=== PATIENT | female | born 1940 | race Two or more races ===

== ENCOUNTER 2020-04-16 16:28 | Inpatient (IN) | payer MEDICARE ==
[~2020-04-16] VITALS: Ht 162.6 cm; Wt 71.8 kg
--- NOTE | 2020-04-16 17:52 | NUR ---
UNABLE TO OBTAIN ECG IN TRIAGE. TO ROOM SHORTLY TO BED FOR ECG
[2020-04-16 18:17] LABS: BASOPHILS % (AUTO) 1 % (0-1); EOSINOPHILS % (AUTO) 0 % (1-7); LYMPHOCYTES % (AUTO) 17 % (22-44); MEAN CORPUSCULAR HEMOGLOBIN 25.1 pg (27.0-34.8); MEAN CORPUSCULAR HGB CONC 30.8 g/dL (32.4-35.8); MEAN PLATELET VOLUME 8.8 fL (7.4-10.4); MONOCYTES % (AUTO) 9 % (2-9); NEUTROPHILS % (AUTO) 73 % (42-75); PLATELET COUNT 406 x10^3/uL (130-400); RED BLOOD COUNT 4.57 x10^6/uL (3.82-5.3); RED CELL DISTRIBUTION WIDTH 15.5 % (9.6-15.2)
[2020-04-16 18:19] LABS: ALANINE AMINOTRANSFERASE 16 U/L (12-78); ALBUMIN 2.6 g/dL (3.4-5.0); ANION GAP 5 mmol/L (5-15); CALCIUM 8.3 mg/dL (8.5-10.1); CHLORIDE 106 mmol/L (98-107); CREATININE 1.35 mg/dL (0.55-1.02)
[2020-04-16 18:21] LABS: ALKALINE PHOSPHATASE 80 U/L (45-117); BILIRUBIN,TOTAL 0.4 mg/dL (0.2-1.0); TOTAL PROTEIN 7.2 g/dL (6.4-8.2)
[2020-04-16 18:22] LABS: MD MORPH REVIEW ONLY
[2020-04-16 18:52] LABS: ANISOCYTOSIS 1+
[2020-04-16 18:53] LABS: HYPOCHROMIA 1+; OVALOCYTES 1+
[2020-04-16 18:54] LABS: <PLATELET ESTIMATE> INCREASED; <PLT MORPHOLOGY> NORMAL PLT MORPH; POLYCHROMASIA 1+
--- NOTE | 2020-04-16 20:40 | NUR ---
SHIP'S PILOT: Patient HR increased ranging from 120s-150s. Notified ERP who went to room to eval.
[2020-04-16] MEDS ORDERED: ASPIRIN 81 MG TABLET CHEW ONE ×2 (20:59→21:09)
[2020-04-16] MEDS ORDERED: ASPIRIN 81 MG TABLET CHEW PO ONE (21:00)
[2020-04-16] MEDS ORDERED: SODIUM CHLORIDE FLUSH 10ML SYR IVF ONE (21:00)
[2020-04-16] MEDS ORDERED: METOPROLOL 1 MG/ML, 5ML ONE ×2 (21:00→22:49)
--- NOTE | 2020-04-16 21:00 | NUR ---
late entry d/t pt care: pt care transferred to this RN at this time. pt daughter brought pt in due to her coughing and being weak lately. daughter reports pt was recently admitted at another hospital but her sister took her home for an unknown reason. pt lungs sound coarse upon auscultation, pulses weak bilaterally. pt reports mild weakness and feeling fatigued. pt nad, resting on gurney, bed in lowest, call light on lap. wctm. pt on monitor/spo2/ecg/bp.
[2020-04-16] MEDS: METOPROLOL 1 MG/ML, 5ML IVPush PRN ×2 (21:08→22:57)
[2020-04-16 21:19] LABS: TROPONIN I 0.021 ng/mL (0.000-0.045)
--- NOTE | 2020-04-16 22:00 | NUR ---
LATE ENTRY D/T PT CARE: PT WHEELED TO RESTROOM VIA LASHAWN, PAYAM, DENIES ADDITIONAL NEEDS AT THIS TIME, STATES SHE IS HUNGRY, INFORMED THAT ONCE WE HAVE TEST RESULTS WE CAN GET HER SOMETHING TO EAT, PT APPEARS COMFORTABLE. WCTM.
[2020-04-16 22:41] LABS: MICROSCOPIC INDICATED
[2020-04-16] MEDS ORDERED: SIMV20TA19 PO (22:45)
[2020-04-16] MEDS ORDERED: METF-754 PO (22:45)
[2020-04-16] MEDS ORDERED: TYLENOL PM PO (22:45)
[2020-04-16] MEDS ORDERED: LOSA1TAB25 PO (22:45)
[2020-04-16] MEDS ORDERED: vitamin d PO (22:45)
[2020-04-16] MEDS ORDERED: DULA1.5P SC (22:45)
[2020-04-16] MEDS ORDERED: CROM10DR2 EACHEYE (22:45)
[2020-04-16] MEDS ORDERED: ASPI-515 PO (22:45)
[2020-04-16] MEDS ORDERED: TRAM50TA2 PO (22:45)
[2020-04-16] MEDS ORDERED: ALONDRONATE PEG (22:45)
[2020-04-16] MEDS ORDERED: INSU100V35 SC (22:45)
[2020-04-16] MEDS ORDERED: FUROSEMIDE 40 MG/4 ML ONE (22:49)
[2020-04-16] MEDS ORDERED: APIXABAN 5 MG TABLET ONE (22:49)
[2020-04-16] MEDS ORDERED: FUROSEMIDE 20 MG/2 ML IV ONE (23:00)
[2020-04-16] MEDS ORDERED: APIXABAN 5 MG TABLET PO ONE (23:00)
[2020-04-16] MEDS ORDERED: APIXABAN 5 MG TABLET PO SCH (23:00)
--- NOTE | 2020-04-16 23:15 | NUR ---
PT MEDICATED PER MAR, PT TO BE ADMITTED TO HOSPITAL, PT RESTING ON GURNEY, PROVIDED BS COMMODE AND CRACKERS FOR COMFORT, NAD, DENIES ADDITIONAL QUESTIONS OR NEEDS AT THIS TIME, DAUGHTER AT BS, WCTM. WAITING FOR ADMIT BED.
--- NOTE | 2020-04-17 00:53 | NUR ---
pt resting on gurney, nad, appears comfortable, even and unlabored respirations, skin warm and dry, bed in lowest, lights dimmed for comfort, provided meal per request, wctm. waiting for admit bed.
--- NOTE | 2020-04-17 01:41 | NUR ---
report called to bernice quezada, pt care to be transferred upon arrival to the floor. pt nad, resting on gurney, no change in condition, wctm.
[2020-04-17] MEDS ORDERED: TEMPLATE NON-FORMULARY MED. (Dulaglutide (Trulicity) 0.5 ML) SC SCH (02:00)
[2020-04-17 02:06] VITALS: BP 133/79
[2020-04-17 02:12] VITALS: BP 133/79
[2020-04-17] MEDS: CROMOLYN SODIUM EACHEYE SCH ×4 (05:36→20:42)
[2020-04-17] MEDS ORDERED: FUROSEMIDE 40 MG/4 ML IV SCH (07:30)
[2020-04-17 08:06] VITALS: BP 156/83
[2020-04-17] MEDS: LOSARTAN 100 MG TAB PO SCH (08:17)
[2020-04-17] MEDS ORDERED: HYDROCHLOROTHIAZIDE 25 MG TABLET PO SCH (09:00)
[2020-04-17] MEDS ORDERED: ASPIRIN 81 MG TABLET EC PO SCH (09:00)
[2020-04-17] MEDS ORDERED: DILTIAZEM 5 MG/ML, 5ML IVPush PRN (09:30)
[2020-04-17] MEDS: CEFTRIAXONE PMX 1GM/50ML 50 ML IV SCH (11:38)
[2020-04-17] MEDS ORDERED: METOPROLOL TARTRATE 50 MG TAB PO STA (11:44)
[2020-04-17 12:35] VITALS: BP 133/103
[2020-04-17] MEDS: INSULIN LISPRO 100 UNITS/ML, PEN SQ-INSULIN SCH ×3 (12:42→20:35)
[2020-04-17 19:33] VITALS: BP 108/73
[2020-04-17] MEDS: APIXABAN 2.5 MG TABLET PO SCH (20:35)
[2020-04-17] MEDS: INSULIN DEGLUDEC 15 UNIT SC SCH (20:42)
[2020-04-17] MEDS ORDERED: SIMVASTATIN 20 MG TABLET PO SCH (21:00)
[2020-04-17] MEDS: METOPROLOL TARTRATE 50 MG TAB PO SCH (23:05)
[2020-04-18 02:09] VITALS: BP 100/66
[2020-04-18] MEDS: CROMOLYN SODIUM EACHEYE SCH ×4 (05:57→20:22)
[2020-04-18] MEDS: METOPROLOL TARTRATE 50 MG TAB PO SCH ×2 (05:57→17:30)
[2020-04-18] MEDS: INSULIN LISPRO 100 UNITS/ML, PEN SQ-INSULIN SCH ×4 (07:00→20:26)
[2020-04-18 08:32] VITALS: BP 115/69
[2020-04-18] MEDS: LOSARTAN 100 MG TAB PO SCH (09:00)
[2020-04-18] MEDS: CEFTRIAXONE PMX 1GM/50ML 50 ML IV SCH (10:06)
[2020-04-18] MEDS: APIXABAN 2.5 MG TABLET PO SCH (10:06)
[2020-04-18 12:39] VITALS: BP 128/82
[2020-04-18 19:03] VITALS: BP 102/54
[2020-04-18] MEDS: APIXABAN 5 MG TABLET PO SCH (20:22)
[2020-04-18] MEDS: INSULIN DEGLUDEC 15 UNIT SC SCH (20:23)
[2020-04-19 00:51] VITALS: BP 128/78
[2020-04-19] MEDS: CROMOLYN SODIUM EACHEYE SCH ×4 (05:38→20:14)
[2020-04-19] MEDS: METOPROLOL TARTRATE 50 MG TAB PO SCH ×3 (05:38→20:14)
[2020-04-19 05:39] LABS: BASOPHILS % (AUTO) 1 % (0-1); EOSINOPHILS % (AUTO) 1 % (1-7); LYMPHOCYTES % (AUTO) 18 % (22-44); MEAN CORPUSCULAR HEMOGLOBIN 24.9 pg (27.0-34.8); MEAN PLATELET VOLUME 8.9 fL (7.4-10.4); MONOCYTES % (AUTO) 10 % (2-9); NEUTROPHILS % (AUTO) 70 % (42-75); PLATELET COUNT 455 x10^3/uL (130-400); RED BLOOD COUNT 4.64 x10^6/uL (3.82-5.3); RED CELL DISTRIBUTION WIDTH 15.8 % (9.6-15.2)
[2020-04-19 05:43] LABS: MD NO
[2020-04-19 05:52] LABS: CHLORIDE 104 mmol/L (98-107)
[2020-04-19 05:58] LABS: ALANINE AMINOTRANSFERASE 13 U/L (12-78); ALBUMIN 2.6 g/dL (3.4-5.0); ALKALINE PHOSPHATASE 82 U/L (45-117); ANION GAP 4 mmol/L (5-15); BILIRUBIN,TOTAL 0.5 mg/dL (0.2-1.0); CALCIUM 8.9 mg/dL (8.5-10.1); CREATININE 1.36 mg/dL (0.55-1.02); TOTAL PROTEIN 7.5 g/dL (6.4-8.2)
[2020-04-19] MEDS: INSULIN LISPRO 100 UNITS/ML, PEN SQ-INSULIN SCH ×4 (07:00→20:17)
[2020-04-19 07:18] VITALS: BP 112/65
[2020-04-19] MEDS: LOSARTAN 100 MG TAB PO SCH (09:00)
[2020-04-19] MEDS ORDERED: APIX5TAB PO (10:01)
[2020-04-19] MEDS ORDERED: LOSA100T2 PO ×2 (10:01)
[2020-04-19] MEDS ORDERED: CEPH-368 PO (10:01)
[2020-04-19] MEDS ORDERED: METO50TA82 PO ×2 (10:01)
[2020-04-19] MEDS: APIXABAN 5 MG TABLET PO SCH ×2 (10:03→20:14)
[2020-04-19] MEDS: CEFTRIAXONE PMX 1GM/50ML 50 ML IV SCH (10:04)
[2020-04-19 12:01] VITALS: BP 111/71
[2020-04-19] MEDS ORDERED: METOPROLOL TARTRATE 50 MG TAB ONE (12:10)
[2020-04-19] MEDS ORDERED: METOPROLOL TARTRATE 50 MG TAB PO SCH (14:00)
[2020-04-19 19:47] VITALS: BP 103/66
[2020-04-19] MEDS: INSULIN DEGLUDEC 15 UNIT SC SCH (20:14)
[2020-04-20 00:45] VITALS: BP 129/82
[2020-04-20] MEDS: METOPROLOL TARTRATE 50 MG TAB PO SCH ×2 (05:05→09:10)
[2020-04-20] MEDS: CROMOLYN SODIUM EACHEYE SCH ×2 (05:06→10:17)
[2020-04-20 06:40] VITALS: BP 145/82
[2020-04-20] MEDS: APIXABAN 5 MG TABLET PO SCH (07:42)
[2020-04-20] MEDS: INSULIN LISPRO 100 UNITS/ML, PEN SQ-INSULIN SCH ×2 (07:42→11:10)
[2020-04-20] MEDS ORDERED: METO50TA82 PO (08:21)
[2020-04-20] MEDS: CEFTRIAXONE PMX 1GM/50ML 50 ML IV SCH (09:10)
[2020-04-20 12:03] VITALS: BP 138/80
== END 2020-04-20 15:16 | disposition home health service (06) | DRG 291 ==
LOC: ED 21:23 → EDIP 22:34 → 4WST 04-17 01:50 → 4EST 04-17 05:00
PROVIDERS: ADMIT Family Medicine; ATTEND Hospitalist
DX: I13.0 Hypertensive heart and chronic kidney disease with heart failure and stage 1 through stage 4 chronic kidney disease, or unspecified chronic kidney disease (principal); J96.01 Acute respiratory failure with hypoxia; N17.0 Acute kidney failure with tubular necrosis; I50.33 Acute on chronic diastolic (congestive) heart failure; J18.9 Pneumonia, unspecified organism; N39.0 Urinary tract infection, site not specified; D68.69 Other thrombophilia; I31.3 Pericardial effusion (noninflammatory); I48.91 Unspecified atrial fibrillation; F41.9 Anxiety disorder, unspecified; E78.5 Hyperlipidemia, unspecified; J45.909 Unspecified asthma, uncomplicated; I27.20 Pulmonary hypertension, unspecified; I35.1 Nonrheumatic aortic (valve) insufficiency; B96.20 Unspecified Escherichia coli [E. coli] as the cause of diseases classified elsewhere; E11.22 Type 2 diabetes mellitus with diabetic chronic kidney disease; N18.9 Chronic kidney disease, unspecified; Z79.01 Long term (current) use of anticoagulants; Z87.01 Personal history of pneumonia (recurrent); B94.8 Sequelae of other specified infectious and parasitic diseases; Z79.899 Other long term (current) drug therapy
CPT/HCPCS: 36415; 71045; 80053; 81001; 82962; 83880; 84484; 85025; 87077; 87086; 87186; 93005; 93306; G0378; J0696; J1940; J1815